=== PATIENT | male | born 2000 ===

== ENCOUNTER 2022-10-08 13:30 | Outpatient (CLI) | payer OTHER ==
--- NOTE | 2022-10-08 14:31 | XRAY Report ---
PROCEDURE: Ankle 3 View LT INDICATIONS: ANKLE SPRAIN LEFT TECHNIQUE: 3 views of the ankle were acquired. COMPARISON: None. FINDINGS: Bones: No fractures or dislocations. Ankle mortise is normally aligned. No suspicious bony lesions . Soft tissues: Lateral malleolar edema is present. Achilles tendon appears normal. IMPRESSION: Lateral malleolar edema. No visualized acute fracture or dislocation. However, occult injury cannot b e excluded. Recommend short interval imaging follow-up in 7-10 days as clinically indicated for addit ional evaluation. Reviewed by: Peggy Rivero MD on 10/08/2022 2:30 PM PDT Approved by: Peggy Rivero MD on 10/08/2022 2:30 PM PDT Station ID: [id number]
== END 2022-10-08 13:45 | disposition home or self-care (01) ==
LOC: DI.N 13:30
PROVIDERS: ATTEND Emergency Medicine
DX: S93.492A Sprain of other ligament of left ankle, initial encounter (principal); R60.0 Localized edema